=== PATIENT | female | born 1970 | race Caucasian/White ===

== ENCOUNTER 2022-12-16 11:09 | Outpatient (REF) | payer BC, SELFPAY ==
[2022-12-16 12:38] LABS: Occult Blood Negative
== END 2022-12-16 11:10 | disposition home or self-care (01) ==
LOC: LAB 11:09
PROVIDERS: PCP Family Medicine; Visit Provider Family Medicine
DX: Z00.00 Encounter for general adult medical examination without abnormal findings (principal)
CPT/HCPCS: G0328

== ENCOUNTER 2023-03-15 11:55 | Outpatient (OUT) | payer BC, SELFPAY ==
--- NOTE | 2023-03-15 12:04 | XR_ITS ---
The [address] [address] Patient Name: NOE GUILLEN MRN: [id number] date: 1970 Sex: F Assigned Patient Location: [facility] Current Patient Location: [facility] Accession/Order Number: [id number] Exam Date: 03/15/2023 12:15 Report Date: 03/16/2023 08:17 At the request of: ESSIE ALANIZ Procedure: XR forearm RT 2V CLINICAL HISTORY: Pain In Right Wrist M25.531 Status post fall. EXAMINATION: Three views right wrist, two views right forearm: 03/15/2023. COMPARISON: None. FINDINGS: Right forearm: AP, lateral view are provided which demonstrate normally aligned elbow and wrist joint. There are no fractures or dislocations. No significant soft tissue swelling, calcifications or radiopaque foreign bodies. Right wrist: 3 views are provided which demonstrate no definite fractures or dislocations. No significant soft tissue swelling, calcifications or radiopaque foreign bodies. XR/XR forearm RT 2V IMPRESSION: 1. No fractures or dislocations of the right forearm. 2. No fractures or dislocations of the right wrist. Electronically authenticated by: NOLVIA LAURENT Date: 03/16/2023 08:17
--- NOTE | 2023-03-15 12:04 | XR_ITS ---
The [address] [address] Patient Name: NOE GUILLEN MRN: [id number] date: 1970 Sex: F Assigned Patient Location: [facility] Current Patient Location: [facility] Accession/Order Number: [id number] Exam Date: 03/15/2023 12:15 Report Date: 03/16/2023 08:17 At the request of: ESSIE ALANIZ Procedure: XR wrist RT min 3V CLINICAL HISTORY: Pain In Right Wrist M25.531 Status post fall. EXAMINATION: Three views right wrist, two views right forearm: 03/15/2023. COMPARISON: None. FINDINGS: Right forearm: AP, lateral view are provided which demonstrate normally aligned elbow and wrist joint. There are no fractures or dislocations. No significant soft tissue swelling, calcifications or radiopaque foreign bodies. Right wrist: 3 views are provided which demonstrate no definite fractures or dislocations. No significant soft tissue swelling, calcifications or radiopaque foreign bodies. XR/XR wrist RT min 3V IMPRESSION: 1. No fractures or dislocations of the right forearm. 2. No fractures or dislocations of the right wrist. Electronically authenticated by: NOLVIA LAURENT Date: 03/16/2023 08:17
--- NOTE | 2023-03-15 12:04 | XR_ITS ---
The [address] [address] Patient Name: NOE GUILLEN MRN: [id number] date: 1970 Sex: F Assigned Patient Location: [facility] Current Patient Location: [facility] Accession/Order Number: [id number] Exam Date: 03/15/2023 12:15 Report Date: 03/16/2023 08:20 At the request of: ESSIE ALANIZ Procedure: XR foot LT min 3V CLINICAL HISTORY: Pain In Left Foot M79.672. Status post fall. Patient was knocked over by a dog. EXAMINATION: Left foot: 03/15/2023. COMPARISON: None. FINDINGS: 3 views are provided which demonstrate normally aligned joint spaces without definite fractures or dislocations. No significant soft tissue swelling, calcifications or radiopaque foreign bodies are seen. There is a small enthesophyte at the insertion site of plantar aponeurosis. XR/XR foot LT min 3V IMPRESSION: No obvious fractures or dislocations or significant degenerative changes. Electronically authenticated by: NOLVIA LAURENT Date: 03/16/2023 08:20
== END 2023-03-15 11:56 | disposition home or self-care (01) ==
LOC: RAD 11:57
PROVIDERS: PCP Family Medicine; Visit Provider Family Medicine
DX: M25.531 Pain in right wrist (principal); M79.601 Pain in right arm; M79.672 Pain in left foot
CPT/HCPCS: 73090; 73110; 73630

== ENCOUNTER 2024-11-03 11:03 | Outpatient (OUT) | payer BC, SELFPAY ==
--- OUTSIDE RECORDS SUMMARY | 2024-11-03 11:10 | XMS_ITS | Clinical Summary ---
Author Organization [id number] [address] [place] [address] Care Team Providers Care Research Animal Facility Supervisor Name Role Phone Jaspal Kim MD Primary Care Provider [phone] Allergies No known active allergies Medications acetaminophen (TYLENOL) 325 mg tablet Take 1 tablet (325 mg total) by mouth every 6 (six) hours as needed for headaches or fever. 30 tablet 2 Active carvediloL (COREG) 25 mg tablet Take 1 tablet (25 mg total) by mouth in the morning and 1 tablet (25 mg total) before bedtime. 60 tablet 2 Active losartan (COZAAR) 25 mg tablet Take 2 tablets (50 mg total) by mouth once daily at bedtime. 30 tablet 2 Active nicotine (NICODERM CQ) 14 mg/24 hr 14 mg per 24 hours for 2 weeks then 7 mg per 24 hours for 2 weeks 20 patch 2 Active Active Problems Problem Noted Date Diagnosed Date Hypertensive emergency 08/30/2021 Immunizations Immunization Administration Dates Next Due COVID-19, mRNA, LNP-S, PF, 100mcg/0.5mL Dose ,07/07/2020 Family History Medical History Relation Name Comments Hypertension Father Breast cancer Mother Hypertension Mother Breast cancer Sister Relation Name Status Comments Father Mother Sister Social History Tobacco Use Types Packs/Day Years Used Date Smoking Tobacco: Every Day Cigarettes 0.5 24 Smokeless Tobacco: Never Alcohol Use Standard Drinks/Week Comments Yes 0 (1 standard drink = 0.6 oz pur e alcohol) Occasionally Social Connection and Isolation Panel [NHANES] A nswer Date Recorded In a typical week, how many times do you talk on the phone with family, friends, or neighbors? Twice a week 08/30/2021 How often do you get together with friends or re latives? Twice a week 08/30/2021 How often do you attend hindu or yazidi serv ices? Never 08/30/2021 Do you belong to any clubs o r organizations such as hindu groups, unions, fraternal or athletic groups, or school groups? No 08/30/2021 How often do you attend meet ings of the clubs or organizations you belong to? Never 08/30/2021 Are you , , di vorced, , never , or living with a partner? 08/30/2021 AUDIT-C Answer Date Recorded Q1: How often do you have a drink containing alc ohol? 2-3 times a week 08/30/2021 Q2: How many drinks containi ng alcohol do you have on a typical day when you are drinking? 1 or 2 08/30/2021 Q3: How often do you have si x or more drinks on one occasion? Never 08/30/2021 Overall Financial Resource Strain (CARDIA) Answe r Date Recorded How hard is it for you to pa y for the very basics like food, housing, medical care, and heating? Not very hard 08/30/2021 PHQ-2 Answer Date Recorded Total Score 0 08/30/2021 [facility] of Occupat ional Health - Occupational Stress Questionnaire Answer Date Recorded Do you feel stress - tense, restless, nervous, or anxious, or unable to sleep at night because your mind is troubled all the time - these days? Very much 08/30/2021 Exercise Vital Sign Answer Date Recorde d On average, how many days pe r week do you engage in moderate to strenuous exercise (like a brisk walk)? 3 days 08/30/2021 On average, how many minutes do you engage in exercise at this level? 60 min 08/30/2021 PRAPARE - Transportation Answer Date Re corded In the past 12 months, has l ack of transportation kept you from medical appointments or from getting medications? No 08/14 In the past 12 months, has l ack of transportation kept you from meetings, work, or from getting things needed for daily living? No 08/30/2021 Childcare Answer Date Recorded Do problems getting child ca re make it difficult for you to work or study? No 08/30/2021 Employment Answer Date Recorded Do you need help finding a [facility] career center and/or a training program? No 08/30/2021 Purpose - Life Answer Date Recorded I have a purpose and direction in my life. Stron gly Agree 08/30/2021 Comments No Sex and Gender Information Value Date Recorded Sex Assigned at Not on file Legal Sex Female 12:01 PM EDT Gender Identity Not on file Sexual Orientation Straight 08/30/2021 1: 46 PM EDT Last Filed Vital Signs Vital Sign Reading Time Taken Comments Blood Pressure 118/62 08/31/2021 11:53 AM EDT Pulse 58 08/31/2021 11:53 AM EDT Temperature 36.7 C (98 F) 08/31/2021 11:53 AM EDT Respiratory Rate 20 08/31/2021 11:53 AM EDT Oxygen Saturation 95% 08/31/2021 11:53 AM EDT Inhaled Oxygen Concentration - - Weight 104.3 kg (230 lb) 01/16/2024 8:50 AM EDT Height 167.6 cm (5' 6 ) 01/16/2024 8:50 AM EDT Body Mass Index 37.12 01/16/2024 8:50 AM EDT Plan of Treatment Health Maintenance Due Date Last Done Comments Tobacco Counseling 1970 Depression Screening 1983 Tobacco Screening 1983 Adult BMI Follow Up Plan 06/27/1989 DTaP,Tdap and Td Vaccines (1 - Tdap) 06/27/1990 Pap Smear 06/27/1992 Zoster (Shingles) Vaccine (1 of 2) 06/27/2021 Influenza Vaccine 12/15/2024 12/15/2023, , 02/04/2022, Additional history exists Adult BMI Screening 01/15/2025 01/16/2024 COVID-19 Vaccine Completed 12/15/2023, , 03/14/2021, Additional history exists Goals Goal Patient Goal Type Associated Problems Recent Progress Patient-Stated? Author safe discharge to home General Yes Kelle Galvan, RN Note: Evaluation of progress towards goal: safe transition from hospital to home with family support. Medical Devices Not on file Insurance [employer] Advance Directives * Full Code (Latest Code Status on File) Date Activated Date Inactivated Comments 08/30/2021 3:11 PM 08/31/2021 4:53 PM Care Teams Research Animal Facility Supervisor Relationship Specialty Start Date End Date Jaspal Kim MD PCP - General Family Medicine 08/27/18
--- NOTE | 2024-11-03 11:12 | XR_ITS ---
The [address] [address] Patient Name: NOE GUILLEN MRN: [id number] date: 1970 Sex: F Assigned Patient Location: [facility] Current Patient Location: [facility] Accession/Order Number: [id number] Exam Date: 11/03/2024 11:42 Report Date: 11/03/2024 11:44 At the request of: ESSIE ALANIZ MD Procedure: XR hand LT min 3V LEFT WRIST - 3 views, left hand 3 views left forearm 2 views CLINICAL HISTORY: Hand Pain COMPARISON: None FINDINGS: Left wrist/hand: No focal soft tissue abnormality or acute bony process. No bony erosions. Joint spaces appear maintained. Left forearm: No focal soft tissue abnormality or acute bony process. Elbow joint appears grossly maintained. XR/XR hand LT min 3V IMPRESSION: NO ACUTE BONY PROCESS. Impression dictated by: Caleb Marlow Jr., D.OMillie 11/03/2024 11:44 AM Dictation Location: [employer] Electronically authenticated by: [id number] Y Date: 11/03/2024 11:44
--- NOTE | 2024-11-03 11:12 | XR_ITS ---
The [address] [address] Patient Name: NOE GUILLEN MRN: [id number] date: 1970 Sex: F Assigned Patient Location: [facility] Current Patient Location: [facility] Accession/Order Number: [id number] Exam Date: 11/03/2024 11:42 Report Date: 11/03/2024 11:44 At the request of: ESSIE ALANIZ MD Procedure: XR hand LT min 3V LEFT WRIST - 3 views, left hand 3 views left forearm 2 views CLINICAL HISTORY: Hand Pain COMPARISON: None FINDINGS: Left wrist/hand: No focal soft tissue abnormality or acute bony process. No bony erosions. Joint spaces appear maintained. Left forearm: No focal soft tissue abnormality or acute bony process. Elbow joint appears grossly maintained. XR/XR wrist LT min 3V IMPRESSION: NO ACUTE BONY PROCESS. Impression dictated by: Caleb Marlow Jr., D.OMillie 11/03/2024 11:44 AM Dictation Location: [employer] Electronically authenticated by: [id number] Y Date: 11/03/2024 11:44
--- NOTE | 2024-11-03 11:12 | XR_ITS ---
The [address] [address] Patient Name: NOE GUILLEN MRN: [id number] date: 1970 Sex: F Assigned Patient Location: [facility] Current Patient Location: [facility] Accession/Order Number: [id number] Exam Date: 11/03/2024 11:42 Report Date: 11/03/2024 11:44 At the request of: ESSIE ALANIZ MD Procedure: XR hand LT min 3V LEFT WRIST - 3 views, left hand 3 views left forearm 2 views CLINICAL HISTORY: Hand Pain COMPARISON: None FINDINGS: Left wrist/hand: No focal soft tissue abnormality or acute bony process. No bony erosions. Joint spaces appear maintained. Left forearm: No focal soft tissue abnormality or acute bony process. Elbow joint appears grossly maintained. XR/XR forearm LT 2V IMPRESSION: NO ACUTE BONY PROCESS. Impression dictated by: Caleb Marlow Jr. DMillieOMillie 11/03/2024 11:44 AM Dictation Location: [facility] Electronically authenticated by: [id number] Y Date: 11/03/2024 11:44
== END 2024-11-03 11:04 | disposition home or self-care (01) ==
LOC: RAD 11:07
PROVIDERS: PCP Family Medicine; Visit Provider Family Medicine
DX: M79.642 Pain in left hand (principal)
CPT/HCPCS: 73090; 73110; 73130